=== PATIENT | male | born 1950 | race Caucasian/White ===

== ENCOUNTER 2017-04-15 07:02 | Emergency (ER) | payer MEDICARE ==
[2017-04-15] MEDS ORDERED: Morphine 4 MG/ML Carpuject ONE ×2 (07:18→08:51)
[2017-04-15 07:36] LABS: #Basophils 0.1 thou/uL (0.0-0.2); #Eosinphils 0.1 thou/uL (0.0-0.7); #Lymphocytes 1.3 thou/uL (1.20-3.40); #Monocytes 0.5 thou/uL (0.11-0.59); #Neutrophils 9.2 thou/uL (1.40-6.50); %Eosinophils 0.7 % (0.0-10.0); %Lymphocytes 11.7 % (21.0-51.0); %Monocytes 4.1 % (0.0-10.0); %Neutrophils 82.6 % (42.0-75.0); Hemoglobin 16.8 g/dL (14.0-18.0); Mean Corpuscular HGB CONC 34.7 g/dL (32.0-36.0); Mean Corpuscular Hemoglobin 31.5 pg (27.0-31.0); Mean Corpuscular Volume 90.9 fl (80.0-94.0); Platelet Count 228 thou/uL (130-400); RBC Distribution Width 11.3 % (11.5-14.5); Red Blood Cell (RBC) Count 5.33 mill/uL (4.70-6.10); White Blood Cell (WBC) Count 11.2 thou/uL (4.8-10.8)
[2017-04-15 07:42] LABS: PTT 24.2 SEC (22.9-36.1); Prothrombin Time 13.4 SEC (12.0-14.7)
[2017-04-15 07:51] LABS: ALT (SGPT) 28 U/L (8-55); AST (SGOT) 30 U/L (5-34); Albumin 4.4 g/dL (3.4-4.8); Alcohol Less than 10 mg/dL (Less than 10); Alkaline Phosphatase 57 U/L (40-150); Anion Gap 17 mmol/L (10-20); BUN (Urea Nitrogen) 29 mg/dL (8.4-25.7); Bilirubin, Total 0.4 mg/dL (0.2-1.2); Calc. Creatinine Clearance 0 mL/min (70-130); Calcium 9.3 mg/dL (7.8-10.44); Carbon Dioxide 20 mmol/L (23-31); Chloride 108 mmol/L (98-107); Estimated GFR-MDRD 62; Globulin 3.3 g/dL (2.4-3.5); Glucose 150 mg/dL (80-115); Protein, Total 7.7 g/dL (5.8-8.1); Sodium 141 mmol/L (136-145)
--- NOTE | 2017-04-15 10:15 | CT ---
CT CHEST WITH IV CONTRAST CT THORACIC SPINE NONCONTRAST: History: Fall. Chest injury. Back injury and pain. FINDINGS: There is mild atelectasis and scarring at each posterior lung base. No pneumothorax or mediastinal he matoma. There is calcification in the arterial structures. Nonenlarged lymph nodes are scattered abou t the mediastinum. Old healed right rib fractures are apparent. No acute fractures are visible. The right shoulder is incompletely imaged on this exam. The inferior most images show a fracture with minimal displacement involving the anterior and superior endplate of the L1 vertebra. IMPRESSION: 1. Nondisplaced fracture involving the L1 vertebral body as detailed above. 2. Atherosclerosis. POS: [facility]
--- NOTE | 2017-04-15 10:16 | RAD ---
RIGHT HIP TWO VIEWS: History: Fall. Right hip injury. FINDINGS: Cortical remodeling involving the latera aspect of the acetabulum suggests an old injury. Mild osteoa rthritic changes are present. Joint space is preserved. IMPRESSION: Chronic type findings of the right hip as detailed above. No acute osseous abnormalities are demonstr ated. POS: [facility]
--- NOTE | 2017-04-15 10:17 | RAD ---
LEFT SHOULDER THREE VIEWS: History: Fall. Left shoulder injury. FINDINGS: Acromioclavicular and glenohumeral alignment are maintained. No acute fracture or dislocation are oskar arent. IMPRESSION: Mild osteoarthritic changes left shoulder. No acute osseous abnormalities are demonstrated. POS: [facility]
--- NOTE | 2017-04-15 10:18 | RAD ---
CHEST ONE VIEW: History: Fall. Chest injury. FINDINGS: Cardiac silhouette and pulmonary vasculature are unremarkable. Mediastinum is midline. There is no lo bar consolidation or evidence of pneumothorax. IMPRESSION: No active cardiopulmonary abnormalities are demonstrated. POS: [facility]
[2017-04-15] MEDS ORDERED: traMADol HCl 50 MG TAB ONE (13:03)
[2017-04-15] MEDS ORDERED: Ondansetron ODT 4 MG TAB ONE (15:41)
== END 2017-04-15 17:46 | disposition home or self-care (01) ==
LOC: BURERS 07:02
DX: S32.019A Unspecified fracture of first lumbar vertebra, initial encounter for closed fracture (principal); S46.012A Strain of muscle(s) and tendon(s) of the rotator cuff of left shoulder, initial encounter; I10 Essential (primary) hypertension; W11.XXXA Fall on and from ladder, initial encounter
CPT/HCPCS: 71045; 71260; 80053; 80307; 85025; 85610; 85730; 96374; 96376; J2270; Q0162